=== PATIENT | male | born 1955 | race Caucasian/White ===

== ENCOUNTER 2020-08-18 07:47 | Day surgery (SDC) | payer MEDICARE, BC ==
[2020-08-16 15:19] VITALS: BMI 27.7
[~2020-08-18 07:47] MED LIST: LACTATED RINGERS 1,000 ML IV SCH; LIDOCAINE 1% (10MG/ML) FOR IV START INTRADERMA PRN
[2020-08-18 08:05] VITALS: TEMP 97.9
[2020-08-18] MEDS ORDERED: PROPOFOL 10 MG/ML 20 ML VIAL IV ONE (08:39)
--- NOTE | 2020-08-18 08:42 | P.GSHP ---
History of Present Illness H&P Date: 08/18/20 Chief Complaint: History of colon polyp This a 65-year-old male presents today for colonoscopy. Patient had a previous history of colon polyps. His last colonoscopy was 6 years ago. Past Medical History Past Medical History: Hyperlipidemia, Hypertension, Prostate Disorder Additional Past Medical History / Comment(s): Hx colon polyp x1. BPH. History of Any Multi-Drug Resistant Organisms: None Reported Past Surgical History: Orthopedic Surgery, Tonsillectomy Additional Past Surgical History / Comment(s): ORIF Lt foot. Colonoscopies. Rt hand surg for laceration. Past Anesthesia/Blood Transfusion Reactions: No Reported Reaction Smoking Status: Never smoker - Past Family History Mother Family Medical History: No Reported History Medications and Allergies Home Medications Medication Instructions Recorded Confirmed Type Atorvastatin [Lipitor] 20 mg PO DAILY 08/16/20 08/18/20 History Ergocalciferol [Vitamin D2 50,000 unit PO Q7D 08/16/20 08/18/20 History (DRISDOL)] Finasteride [Proscar] 5 mg PO DAILY 08/16/20 08/18/20 History lisinopriL [Prinivil] 20 mg PO DAILY 08/16/20 08/18/20 History Allergies Allergy/AdvReac Type Severity Reaction Status Date / Time No Known Allergies Allergy Verified 08/18/20 08:01 Surgical - Exam Vital Signs Temp Pulse Resp BP Pulse Ox 97.9 F 56 L 16 143/81 98 08/18/20 08:04 08/18/20 08:04 08/18/20 08:04 08/18/20 08:04 08/18/20 08:04 - General well developed, well nourished, no distress - Eyes PERRL - ENT normal pinna - Neck no masses - Respiratory normal expansion - Cardiovascular Rhythm: regular - Abdomen Abdomen: soft, non tender Assessment and Plan Assessment: History: Polyps. We'll perform colonoscopy.
--- NOTE | 2020-08-18 09:09 | P.OP ---
Date of Procedure: 08/18/20 Preoperative Diagnosis: History of colon polyp Postoperative Diagnosis: Large peduncular polyp at 60 cm left colon Procedure(s) Performed: Colonoscopy Anesthesia: MAC Surgeon: Jean Pierre Roe Pathology: other (Colon polyp) Condition: stable Disposition: PACU Description of Procedure: The patient's placed on the endoscopy table in the lateral position. He received IV sedation. Digital rectal exam was performed which revealed no rebound. The prostate was symmetric without nodules. The flexible colonoscope was then placed patient anus passed throughout the entire colon. The ileocecal valve was visualized. Cecum, ascending and transverse colon appeared normal. In the descending colon at the 60 cm sana there was a large peduncular polyp the polyp was removed in several sections using the snare. There is no bleeding seen from the polyp base. Scope was withdrawn remainder the descending colon appeared normal. In the; diffuse scattered diverticula. Scope was then brought back the rectum this appeared normal. Scope was brought patient.
[2020-08-18 09:30] VITALS: BP 134/85; PULSE 53; RESP 18
== END 2020-08-18 09:50 | disposition home or self-care (01) ==
LOC: ORWHC2ENDO 07:47
PROVIDERS: ATTEND Surgery
DX: Z12.11 Encounter for screening for malignant neoplasm of colon (principal); D17.5 Benign lipomatous neoplasm of intra-abdominal organs; K57.30 Diverticulosis of large intestine without perforation or abscess without bleeding; Z86.010 Personal history of colon polyps; I10 Essential (primary) hypertension; Z79.899 Other long term (current) drug therapy; Z98.890 Other specified postprocedural states; E78.5 Hyperlipidemia, unspecified; N40.0 Benign prostatic hyperplasia without lower urinary tract symptoms
CPT/HCPCS: 88305; 45385; J2704

== ENCOUNTER 2022-01-07 17:05 | Emergency (ER) | payer BC, MEDICARE ==
[2022-01-07 17:16] VITALS: BP 153/87; PULSE 68; RESP 20; TEMP 97.4
--- NOTE | 2022-01-07 17:36 | XR ---
EXAMINATION TYPE: XR Hip Complete LT DATE OF EXAM: 01/07/2022 COMPARISON: NONE HISTORY: Fall. Pain TECHNIQUE: 2 views FINDINGS: I see no fracture nor dislocation. Hip joint space is fairly normal. Sacroiliac joint is in tact. IMPRESSION: Negative left hip exam. No fracture.
[2022-01-07] MEDS ORDERED: HYDROcodone/APAP 5-325MG 1 EACH TAB PO STA (17:55)
[2022-01-07] MEDS ORDERED: KETOROLAC 15 MG/ML 1 ML VIAL IM STA (17:55)
--- NOTE | 2022-01-07 19:03 | ED ---
General Adult HPI - General Chief complaint: Fall Stated complaint: Fell on ice injured hip Time Seen by Provider: 01/07/22 17:30 Source: patient, RN notes reviewed, old records reviewed Mode of arrival: wheelchair Limitations: no limitations - History of Present Illness Initial comments: Patient is a 66-year-old male with past medical history remarkable for hypertension who slipped and fell on ice at home. This occurred a few hours ago. He presents over concern for left hip pain that is isolated. Denies any abdominal pain, chest pain, shortness of breath. Did not hit his head. No LOC. Is not on blood thinners. No other injuries. No other complaints. Like to be evaluated for left hip injury. He states he is able to walk on it, however he is limping. He has some difficulty with flexion. Tenderness is over the left sided lateral hip. - Related Data Home Medications Medication Instructions Recorded Confirmed Atorvastatin [Lipitor] 20 mg PO DAILY 08/16/20 01/07/22 Ergocalciferol [Vitamin D2 50,000 unit PO Q7D 08/16/20 01/07/22 (DRISDOL)] Finasteride [Proscar] 5 mg PO DAILY 08/16/20 01/07/22 lisinopriL [Prinivil] 20 mg PO DAILY 08/16/20 01/07/22 Previous Rx's Medication Instructions Recorded HYDROcodone/APAP 5-325MG [[place] 5] 1 each PO Q6HR PRN 3 Days #12 tab 01/07/22 Methocarbamol [Robaxin-750] 750 mg PO BID 7 Days #14 tablet 01/07/22 Allergies Allergy/AdvReac Type Severity Reaction Status Date / Time No Known Allergies Allergy Verified 01/07/22 17:53 Review of Systems ROS Statement: Those systems with pertinent positive or pertinent negative responses have been documented in the HPI. Review of Systems: CONST: Denies fever EYES: Denies blurry vision ENT: Denies nasal congestion C/V: Denies Chest pain RESP: Denies shortness of breath GI: Denies abdominal pain : Denies dysuria SKIN: Denies rash. MSK: Endorses left hip pain. NEURO: Denies headache ROS Other: All systems not noted in ROS Statement are negative. Past Medical History Past Medical History: Hyperlipidemia, Hypertension, Prostate Disorder Additional Past Medical History / Comment(s): Hx colon polyp x1. BPH. History of Any Multi-Drug Resistant Organisms: None Reported Past Surgical History: Orthopedic Surgery, Tonsillectomy Additional Past Surgical History / Comment(s): ORIF Lt foot. Colonoscopies. Rt hand surg for laceration. Past Anesthesia/Blood Transfusion Reactions: No Reported Reaction Past Psychological History: No Psychological Hx Reported Smoking Status: Never smoker Past Alcohol Use History: Occasional Past Drug Use History: None Reported - Past Family History Mother Family Medical History: No Reported History General Exam - General Exam Comments Initial Comments: General: Appears in no acute distress. HEAD: Normal with no signs of head trauma. EYES: PERRLA, EOMI, conjunctiva normal, no discharge. Pupils are 3 mm and equal bilaterally. ENT: Hearing grossly intact RESPIRATORY: No Increased work of breathing. C/V: Regular rate and rhythm. Peripheral pulses 2+ and intact throughout. ABD: Abd is soft, nontender, nondistended EXT: Reduced range of motion of left hip secondary to pain. Pain is primarily over the left lateral femoral head. Pain with flexion and extension. No obvious deformity. No pain distal to the left hip. Pelvis is stable. SKIN: No rashes or lesions observed on exposed skin. NEURO: Alert and oriented 4. Limitations: no limitations Course Vital Signs 01/07/22 17:12 Temperature 97.4 F L Pulse Rate 68 Respiratory 20 Rate Blood Pressure 153/87 O2 Sat by Pulse 99 Oximetry Medical Decision Making - Medical Decision Making Based on the patient's presentation and physical exam, I'm concerned for possible bony tracking. The patient's left hip. He will be given analgesia with [place] as well as IM Toradol. Pelvic x-ray was obtained prior to me evaluating the patient, as there was a delay placing him in the room from triage. We discussed the results of his hip x-ray which revealed no acute fracture or dislocation. Due to continued pain, I would like to obtain CT imaging of the left hip and pelvis to ensure that there is no acute fracture. He was in agreement this plan. CT imaging revealed a hairline fracture of the left acetabulum. No other injury. I spoke with the patient, and he is able to ambulate, however it is painful. I spoke with the physician legal assistant on-call, FERMÍN Allan was in agreement with the plan for crutches and follow up tomorrow in clinic. He will receive Dr. Tabor follow up information. I instructed them to call the morning. I discussed this with the patient and he was in agreement with this plan. He'll be given a prescription for [place] 5, and a complete the opiate form. I will provide the patient with a prescription for [place] 5, Robaxin. I instructed the patient to follow up with their PCP in the next 3 days. I provided contact information for follow up with orthopedic surgery, [place]. I explained that the patient should return to the emergency department if they experience any worsening symptoms. Strict return precautions were discussed with the patient. The patient expressed understanding of these instructions. I answered all questions that the patient had. The patient was discharged home in fair condition with their prescriptions and follow up information. Disposition Clinical Impression: Fall, Left acetabular fracture Disposition: HOME SELF-CARE Condition: Fair Instructions (If sedation given, give patient instructions): Crutch Instructions (ED), Fall Prevention (ED), Hip Fracture (ED) Prescriptions: HYDROcodone/APAP 5-325MG [[place] 5] 1 each PO Q6HR PRN 3 Days #12 tab PRN Reason: Pain Methocarbamol [Robaxin-750] 750 mg PO BID 7 Days #14 tablet Is patient prescribed a controlled substance at d/c from ED?: No When asked, does pt state using other controlled substances?: No If prescribed controlled substance>3 days was MAPS reviewed?: Prescribed <3 Days If opioid is for acute pain is fill amount 7 days or less?: Yes If Rx opioid, was Start Talking consent form obtained?: Yes Referrals: Nella Kohler DO [Primary Care Provider] - 1-2 days Moises Tabor DO [Doctor of Osteopathic Medicine] - 1-2 days
--- NOTE | 2022-01-07 20:06 | CT ---
EXAMINATION TYPE: CT abdomen pelvis wo con DATE OF EXAM: 01/07/2022 COMPARISON: None HISTORY: LT hip pain, pt fell on ice CT DLP: 589.5 mGycm Automated exposure control for dose reduction was used. Images obtained from the diaphragm to the floor the pelvis without contrast. Lung bases are clear. There is no pleural effusion. Heart size is normal. There is no pericardial eff usion. Liver spleen and stomach pancreas and gallbladder appear normal. The bile ducts are not dilated. There is no adrenal mass. Kidneys have normal size. There is no hydronephrosis. The ureters are not d ilated. There is no retroperitoneal adenopathy. Appendix appears normal. The bladder distends smoothl y. There is no inguinal hernia. There is no free fluid in the pelvis. There is no mesenteric edema. There is no ascites or free air. There is no bowel obstruction. The lumbar vertebrae have normal alignment. There is narrowing at L5-S1 disc with anterior spur forma tion. There is no compression fracture. There is hairline nondisplaced fracture through the medial le ft acetabulum. IMPRESSION: There is horizontal hairline fracture through the medial left acetabulum best seen on the coronal nubia ges. No evidence of fracture of the proximal femur. No acute abnormality within the abdomen and pelvis. Normal appendix.
== END 2022-01-07 21:06 | disposition home or self-care (01) ==
LOC: EC 17:05
DX: S32.402A Unspecified fracture of left acetabulum, initial encounter for closed fracture (principal); I10 Essential (primary) hypertension; E78.5 Hyperlipidemia, unspecified; W00.9XXA Unspecified fall due to ice and snow, initial encounter
CPT/HCPCS: 99284; 96372; 73502; 74176; J1885